=== PATIENT | female | born 1990 ===

== ENCOUNTER 2025-01-19 15:53 | Inpatient (IN) | payer OTHER ==
[2025-01-19] VITALS (30 sets, daily range): BP systolic 114–169; BP diastolic 70–103
[~2025-01-19] VITALS: Ht 149.9 cm; Wt 64.1 kg
[2025-01-19] MEDS ORDERED: Carboprost Tromethamine 250 MCG/ML 1ML Amp IM PRN (16:40)
[2025-01-19] MEDS ORDERED: Ondansetron HCl 2 MG / ML 2ML Vial IV PRN (16:40)
[2025-01-19] MEDS ORDERED: Tranexamic Acid 100 ML IV SCH (16:40)
[2025-01-19] MEDS ORDERED: OXYTOCIN/RINGER'S LACTATE 500 ML IV PRN (16:40)
[2025-01-19] MEDS ORDERED: Oxytocin 10 Unit / ML Vial IM PRN (16:40)
[2025-01-19] MEDS ORDERED: Labetalol HCL 5 MG/ML 4ML Injection (Single Dose) IV ONE (17:10)
[2025-01-19] MEDS ORDERED: Labetalol HCL 5 MG/ML 4ML Injection (Single Dose) ONE (17:10)
[2025-01-19] MEDS ORDERED: Magnesium Sul 4 GM/Water100 ML 100 ML IV ONE ×2 (17:10)
[2025-01-19 17:14] LABS: BASOPHILS ABSOLUTE AUTO 0.03 K/mm3 (0.00-0.23); BASOPHILS PERCENT AUTO 0 % (0-2); EOSINOPHILS ABSOLUTE AUTO 0.11 K/mm3 (0.00-0.68); EOSINOPHILS PERCENT AUTO 1 % (0-6); Hematocrit 36.3 % (33.0-51.0); Hemoglobin 11.6 g/dL (11.5-16.0); IMMATURE GRAN ABSOLUTE AUTO 0.05 K/mm3 (0.00-0.10); IMMATURE GRAN PERCENT AUTO 1 % (0-1); LYMPHOCYTES ABSOLUTE AUTO 2.29 K/mm3 (0.84-5.20); LYMPHOCYTES PERCENT AUTO 28 % (21-46); MONOCYTES ABSOLUTE AUTO 0.61 K/mm3 (0.16-1.47); MONOCYTES PERCENT AUTO 8 % (4-13); Mean Corpuscular HGB Conc 32.0 g/dL (31.5-36.5); Mean Corpuscular Volume 82 fL (80-100); NEUTROPHILS ABSOLUTE AUTO 5.00 K/mm3 (1.96-9.15); NEUTROPHILS PERCENT AUTO 62 % (41-73); NRBC ABSOLUTE 0.00 K/mm3 (0.00-0.02); NRBC Auto 0.0 /100 WBC (0.0-0.2); Platelet Count 206 K/mm3 (150-400); RDW Coefficient Variation 14.9 % (11.7-14.2); RDW Standard Deviation 43.6 fL (35.1-46.3)
[2025-01-19 17:41] LABS: Alanine Aminotransfer (ALT/SGP 25.0 U/L (12-78); Albumin, Blood 2.9 g/dL (3.4-5.0); Albumin/Globulin Ratio 0.6 (0.8-1.8); Anion Gap 9.0 mmol/L (3-11); Aspartate Aminotrans (AST/SGOT 22.0 U/L (12-37); Bilirubin, Total 0.4 mg/dL (0.1-1.0); Blood Urea Nitrogen 8.0 mg/dL (8-24); CO2, Blood 21.0 mmol/L (21-32); Calcium, Blood 9.0 mg/dL (8.5-10.1); Chloride, Blood 108.0 mmol/L (98-108); Creatinine, Blood 0.51 mg/dL (0.40-1.00); Globulin, Blood 4.6 g/dL (2.2-4.0); Glucose, Blood 75.0 mg/dL (70-99); Lactate Dehydrogenase (Ld),Bld 241.0 U/L (100-240); Potassium, Blood 3.7 mmol/L (3.5-5.5); Sodium, Blood 134.0 mmol/L (136-145); Total Protein, Blood 7.5 g/dL (6.4-8.2)
[2025-01-19 18:00] LABS: Fibrinogen 611.0 mg/dL (170-430); Prothrombin Time Results 9.4 Sec (9.7-11.5)
[2025-01-19] MEDS ORDERED: HydrALAZINE HCl 20 MG / ML 1ML Vial ONE (19:54)
[2025-01-19] MEDS ORDERED: HydrALAZINE HCl 20 MG / ML 1ML Vial IV ONE ×2 (19:55→21:40)
[2025-01-19 20:22] LABS: Creatinine, Urine Random 24.8 mg/dL (27.00-270.00)
[2025-01-19 20:24] LABS: Protein, Urine Random 256.8 mg/dL (0.0-11.9); Protein/Creat Ratio, Ur Random 10.4
[2025-01-20] VITALS (102 sets, daily range): BP systolic 98–160; BP diastolic 49–108
[2025-01-20] MEDS ORDERED: OXYTOCIN/RINGER'S LACTATE 500 ML IV SCH ×2 (00:55→17:55)
[2025-01-20] MEDS ORDERED: FentaNYL 2mcg/ml-Bup 0.1% Epd 250 ML EPI PRN (03:55)
[2025-01-20] MEDS ORDERED: HydrALAZINE HCl 20 MG / ML 1ML Vial IV ONE ×2 (03:55→15:35)
[2025-01-20] MEDS ORDERED: ePHEDrine Sulfate 50 MG/ML 1ML Injection XX PRN (03:55)
[2025-01-20] MEDS ORDERED: FentaNYL Citrate 50 MCG/ML 2 ML Injection ONE (04:22)
[2025-01-20] MEDS ORDERED: HydrALAZINE HCl 20 MG / ML 1ML Vial ONE (15:24)
[2025-01-20] MEDS ORDERED: Acetaminophen/Codeine 300-30 mg PO PRN (17:50)
[2025-01-20] MEDS ORDERED: Benzocaine Topical Anesthetic Spray 60GM TOP PRN (17:50)
[2025-01-20] MEDS ORDERED: OxyCODONE 5 mg/Acetamin 325 mg TABLET PO PRN (17:50)
[2025-01-20] MEDS ORDERED: Oxytocin 10 Unit / ML Vial IM ONE (17:50)
[2025-01-20] MEDS ORDERED: Witch Hazel/Glycerin PADS TOP PRN (17:55)
[2025-01-20] MEDS ORDERED: FLU VACC TS2025-26(6MOS UP)/PF 45 MCG/0.5 ML SYRINGE IM SCH (17:55)
[2025-01-20] MEDS ORDERED: Ketorolac Tromethamine 30mg Vial IV PRN (18:00)
--- NOTE | 2025-01-20 18:07 | NUR ---
B/P ELEVATED AT 146/90 ERIST UPDATED LABETALOL 100 MG PO X1 NOW
--- NOTE | 2025-01-20 18:16 | NUR ---
PATIENT SLEEPY WAKES FOR VERBAL COMANDS,
--- NOTE | 2025-01-20 18:26 | NUR ---
PATIENT STILLAPPEARS SLEEPY, CARHART UPDATED MAGNESIUM ORDER PLACED, CONTINUES TO WAKE UP TO VERBAL COMANDS, WITH BIOX 97-100%
--- NOTE | 2025-01-20 20:30 | NUR ---
call to alice regarding pts inability to safely get out of bed at this time r/t to dizziness and generalized weakness. per alice okay to place scales at this time. additionally notified alice of pts mag level of 6.9. no further orders in regard to pts mag level.
[2025-01-20 20:51] LABS: Source, Urine Foley catheter
[2025-01-20 20:58] LABS: Bilirubin, Urine Neg (Neg); Color, Urine Amber (P-Yellow); Glucose Qualitative, Urine Neg (Neg); Ketones, Urine Neg (Neg); Leukocyte Esterase, Urine 2+ (Neg); Protein, Urine 3+ (Neg); Specific Gravity, Urine 1.025 (1.003-1.022); Urobilinogen, Urine NORM (Normal)
[2025-01-20 21:23] LABS: Red Blood Cells, Urine 25-50 /hpf (0-2); White Blood Cells, Urine 25-50 /hpf (0-5)
--- NOTE | 2025-01-20 22:00 | NUR ---
notified alice of pts UA results, alice then reviews UA results and states that she does not believe pt needs antibotics at this time, that she would like to wait for the results of the urine culture. Additionally, this rn and alice discussed pts most recents b/p. recieved parameters for holdings pts 2300 dose of labetalol if her blood pressure is less than 140/90. Alice then discusses lowering pts magnesium drip to 1G/hr to see if pt will feel better and then potentially ambulate. order recieved to lower pts magnesium drip to 1G/hr.
--- NOTE | 2025-01-20 22:05 | NUR ---
magnesium drip adjusted to 1G/hr (25mls/hr). dose and pump settings verified with erik wang rn.
[2025-01-21] VITALS (32 sets, daily range): BP systolic 104–140; BP diastolic 54–94
--- NOTE | 2025-01-21 00:58 | NUR ---
PT EDUCATED VIA TELEPHONE BOILER/CHILLER TECHNICIAN REGARDING SAFE SLEEP PRACTICES FOR WELL WHEN/HOW OFTEN TO FEED. EDUCATED THAT THE SHOULD NOT SLEEP IN THE BED W/ THE PT, BUT SHOULD BE PUT TO SLEEP ON THIER BACK IN THE BASSINET. PT ALSO EDUCATED THAT NO OTHER BLANKETS SHOULD BE PLACED IN THE BASSINET W/ BABY OR ON TOP OF THE CRIB, THEY POSE A RISK OF FALLING IN AND COVERING THE 'S FACE. PT VERBALLY ACKNOWLEDGED TEACHING.
[2025-01-21 06:15] LABS: BASOPHILS ABSOLUTE AUTO 0.05 K/mm3 (0.00-0.23); BASOPHILS PERCENT AUTO 0 % (0-2); EOSINOPHILS ABSOLUTE AUTO 0.01 K/mm3 (0.00-0.68); EOSINOPHILS PERCENT AUTO 0 % (0-6); Hematocrit 23.4 % (33.0-51.0); Hemoglobin 7.8 g/dL (11.5-16.0); IMMATURE GRAN ABSOLUTE AUTO 0.21 K/mm3 (0.00-0.10); IMMATURE GRAN PERCENT AUTO 1 % (0-1); LYMPHOCYTES ABSOLUTE AUTO 2.01 K/mm3 (0.84-5.20); LYMPHOCYTES PERCENT AUTO 8 % (21-46); MONOCYTES ABSOLUTE AUTO 1.37 K/mm3 (0.16-1.47); MONOCYTES PERCENT AUTO 5 % (4-13); Mean Corpuscular HGB Conc 33.3 g/dL (31.5-36.5); Mean Corpuscular Volume 82 fL (80-100); NEUTROPHILS ABSOLUTE AUTO 22.83 K/mm3 (1.96-9.15); NEUTROPHILS PERCENT AUTO 86 % (41-73); NRBC ABSOLUTE 0.00 K/mm3 (0.00-0.02); NRBC Auto 0.0 /100 WBC (0.0-0.2); Platelet Count 182 K/mm3 (150-400); RDW Coefficient Variation 15.3 % (11.7-14.2); RDW Standard Deviation 44.7 fL (35.1-46.3)
--- NOTE | 2025-01-21 08:35 | NUR ---
[facility] CALLED FOR PT UPDATE. NOTIFIED DEVENDRA THAT DAMIAN CATH STILL IN POLACE FOE ACC I&OS. AND THAT PT IS NOT HAVING ANY PRE-E SYMPTOMS. NOTIFIED DEVENDRA THAT ORDERED LABETOLOL HAS BEEN HELD @MIDNIGHT LAST NIGHT AND THIS MORNING FOR SLASHER RUNNER'S IN THE 110-120S. DEVENDRA STATED TO CONTINUE HOLDING THE LABETLOL FOR BP'S IN THAT RANGE. DEVENDRA IS ORDERING PRBC'S TO BE INFUSED W/ PT'S DROP IN HEMOGLOBIN THIS AM. ALSO NOTIFIED DEVENDRA THAT PT'S DO NOT HAVE A CAR SEAT AND SHE STATED THAT SOMEONE FROM [facility] WOULD BRING THEM IN A CAR SEAT.
[2025-01-21] MEDS ORDERED: NS 1,000 ML BAG IR SCH (08:45)
[2025-01-21] MEDS ORDERED: NS 250 ML IV ONE (08:55)
[2025-01-21] MEDS ORDERED: Prenatal Vit/FE Fumarate/FA 1 Tab PO SCH (09:00)
--- NOTE | 2025-01-21 11:18 | NUR ---
CALLED [facility] TO CONNECT PT W/ RESOURCES FOR FOOD @ HOME. @1057 FAXED CORE REFERRAL OVER AND CALLED [facility] TO DISCUSS PT NEEDS FOR PAYING UTILITIE BILLS AND HAVING FOOD/BABY SUPPLIES. STATES THEY WILL HAVE [facility] CALL TO SCHEDULE JOHNNIE FOR PT ON FRIDAY TO RECIEVE SERVICES.
--- NOTE | 2025-01-21 12:02 | NUR ---
CALLED AND UPDATED DEVENDRA DUPREE @1145 ON POSITIVE URINE CULTURE RESULTS. DEVENDRA DUPREE ORDERED CEFLEX 500 MG BID. ALSO CALLED AND UPDATED [facility] ON PT'S NEEDS FOR INET AND SOONER WIC JOHNNIE THAN FRIDAY. TRYING TO GET TELEHEALTH WIC JOHNNIE D/T TRANSPORTATION CONCERNS.
--- NOTE | 2025-01-21 17:32 | NUR ---
TURNED OFF MAG SULFATE INFUSION @1526. DEVENDRA DUPREE ORDERED TO TURN OFF MAG @24 HOURS POST DELIVERY.
--- NOTE | 2025-01-21 17:34 | NUR ---
BP @1456 IN THE 140'S WAS NOT ACCURATE D/T PT MOVING IN BED TO GET UP AND USE BATHROOM. RETOOK BP AND WAS IN THE 120'S.
[2025-01-22 00:44] VITALS: BP 127/82
[2025-01-22 03:28] VITALS: BP 135/87
[2025-01-22 07:15] LABS: BASOPHILS ABSOLUTE AUTO 0.03 K/mm3 (0.00-0.23); BASOPHILS PERCENT AUTO 0 % (0-2); EOSINOPHILS ABSOLUTE AUTO 0.09 K/mm3 (0.00-0.68); EOSINOPHILS PERCENT AUTO 1 % (0-6); Hematocrit 29.8 % (33.0-51.0); Hemoglobin 9.6 g/dL (11.5-16.0); IMMATURE GRAN ABSOLUTE AUTO 0.13 K/mm3 (0.00-0.10); IMMATURE GRAN PERCENT AUTO 1 % (0-1); LYMPHOCYTES ABSOLUTE AUTO 2.25 K/mm3 (0.84-5.20); LYMPHOCYTES PERCENT AUTO 13 % (21-46); MONOCYTES ABSOLUTE AUTO 1.02 K/mm3 (0.16-1.47); MONOCYTES PERCENT AUTO 6 % (4-13); Mean Corpuscular HGB Conc 32.2 g/dL (31.5-36.5); Mean Corpuscular Volume 83 fL (80-100); NEUTROPHILS ABSOLUTE AUTO 13.58 K/mm3 (1.96-9.15); NEUTROPHILS PERCENT AUTO 79 % (41-73); NRBC ABSOLUTE 0.00 K/mm3 (0.00-0.02); NRBC Auto 0.0 /100 WBC (0.0-0.2); Platelet Count 174 K/mm3 (150-400); RDW Coefficient Variation 15.4 % (11.7-14.2); RDW Standard Deviation 46.3 fL (35.1-46.3)
[2025-01-22 07:39] VITALS: BP 140/94
[2025-01-22 07:40] VITALS: BP 136/86
[2025-01-22 07:41] LABS: Alanine Aminotransfer (ALT/SGP 17.0 U/L (12-78); Albumin, Blood 2.0 g/dL (3.4-5.0); Albumin/Globulin Ratio 0.6 (0.8-1.8); Anion Gap 8.0 mmol/L (3-11); Aspartate Aminotrans (AST/SGOT 20.0 U/L (12-37); Bilirubin, Total 0.5 mg/dL (0.1-1.0); Blood Urea Nitrogen 11.0 mg/dL (8-24); CO2, Blood 24.0 mmol/L (21-32); Calcium, Blood 7.9 mg/dL (8.5-10.1); Chloride, Blood 110.0 mmol/L (98-108); Creatinine, Blood 0.6 mg/dL (0.40-1.00); Globulin, Blood 3.5 g/dL (2.2-4.0); Glucose, Blood 73.0 mg/dL (70-99); Potassium, Blood 4.3 mmol/L (3.5-5.5); Sodium, Blood 138.0 mmol/L (136-145); Total Protein, Blood 5.5 g/dL (6.4-8.2)
[2025-01-22] MEDS ORDERED: LABE100 PO (10:18)
[2025-01-22] MEDS ORDERED: CEPH500 PO (10:19)
[2025-01-22] MEDS ORDERED: IBUP800 PO (10:19)
--- NOTE | 2025-01-22 10:30 | NUR ---
DISCARGE TEACHING COMPLETED W/ CLINICAL RESEARCH MANAGER CHANELL IN ROOM. EDUCATED PT ON CALLING TO SCHEDULE VISIT WITH DEVENDRA DUPREE IN ONE WEEK. ALSO EDUCATED TO CALL AND SCHEDULE BABY WELLCHILD VISIT FOR TWO WEEKS. EDUCATED THAT PT'S PERSCRIPTIONS WERE SENT TO [facility] AND TO PICK THOSE UP TO START TAKING PRESCRIBED MEDICATIONS. SCHEDULED PT'S FOLLOW UP JOHNNIE FOR FRIDAY @1600. PT STATED SHE WAS ABLE TO GET A RIDE TO HOSPITAL FOR That time. ANSWERED ALL QUESTIONS PT HAD VIA CLINICAL RESEARCH MANAGER. PLAN ON CLINICAL RESEARCH MANAGER BEING AT FOLLOW UP JOHNNIE.
== END 2025-01-22 11:41 | disposition home or self-care (01) | DRG 807 ==
LOC: OBS 15:53 → BC 15:53 → OBS 16:27 → BC 19:40
PROVIDERS: Family Medicine; ADMIT Registered Nurse Community Health
PROC: 10907ZC Drainage of Amniotic Fluid, Therapeutic from Products of Conception, Via Natural or Artificial Opening (ICD-10-PCS; principal; 2025-01-20)
PROC: 10E0XZZ Delivery of Products of Conception, External Approach (ICD-10-PCS; 2025-01-20)
PROC: 3E0R3BZ Introduction of Anesthetic Agent into Spinal Canal, Percutaneous Approach (ICD-10-PCS; 2025-01-20)
PROC: 00HU33Z Insertion of Infusion Device into Spinal Canal, Percutaneous Approach (ICD-10-PCS; 2025-01-20)
PROC: 30233N1 Transfusion of Nonautologous Red Blood Cells into Peripheral Vein, Percutaneous Approach (ICD-10-PCS; 2025-01-21)
DX: O14.14 Severe pre-eclampsia complicating childbirth (principal); Z37.0 Single live birth; Z3A.40 40 weeks gestation of pregnancy; Z3A.37 37 weeks gestation of pregnancy
CPT/HCPCS: 36415; 51702; 80053; 81001; 82570; 83615; 83735; 84156; 85025; 85384; 85610; 85730; 86850; 86900; 86901; 86923; 87077; 87086; 87186; A9270; J0360; J1885; J2405; J2590; J3010; J3475; J7050; J7120; P9016